=== PATIENT | male | born 1995 | race Caucasian/White ===

== ENCOUNTER 2019-12-13 12:57 | Emergency (ER) | payer BC ==
[~2019-12-13] VITALS: Ht 175.3 cm; Wt 74.8 kg
[~2019-12-13 12:57] MED LIST: FLEXERIL PO; NORCO 5-325 TA1 EACH PO
[2019-12-13] MEDS ORDERED: KEFLEX500 M2 PO (14:02)
[2019-12-13 14:13] VITALS: BP 125/85
== END 2019-12-13 14:15 | disposition home or self-care (01) ==
LOC: M.ERS 12:57
DX: S61.412A Laceration without foreign body of left hand, initial encounter (principal); W26.0XXA Contact with knife, initial encounter; Y93.89 Activity, other specified; Y92.89 Other specified places as the place of occurrence of the external cause; Y99.8 Other external cause status